=== PATIENT | male | born 2000 | race Asian ===

== ENCOUNTER 2019-05-22 14:29 | Emergency (ER) | payer MEDICAID, OTHER ==
[~2019-05-22] VITALS: Ht 162.6 cm; Wt 63.2 kg
[2019-05-22 14:36] VITALS: BP 121/57
[2019-05-22] MEDS ORDERED: HYDROcodone/acetaminophen 5mg/325mg tablet PO ONE (15:30)
[2019-05-22] MEDS ORDERED: ceFAZolin 1gm IM kit IM ONE (15:30)
[2019-05-22] MEDS ORDERED: ondansetron 4mg rapidly disintigrating tab PO ONE (15:30)
[2019-05-22] MEDS ORDERED: IBUP-1984 PO (15:43)
[2019-05-22] MEDS ORDERED: HYDR-4383 PO (15:43)
== END 2019-05-22 16:29 | disposition home or self-care (01) ==
LOC: ER 14:30
DX: S92.411A Displaced fracture of proximal phalanx of right great toe, initial encounter for closed fracture (principal); S90.121A Contusion of right lesser toe(s) without damage to nail, initial encounter; Z79.899 Other long term (current) drug therapy; W01.0XXA Fall on same level from slipping, tripping and stumbling without subsequent striking against object, initial encounter; Y93.89 Activity, other specified; Y92.89 Other specified places as the place of occurrence of the external cause; Y99.8 Other external cause status
CPT/HCPCS: 73660; 96372; 99283; J0690

== ENCOUNTER 2019-06-07 15:54 | Outpatient (CLI) | payer OTHER ==
[~2019-06-07 15:54] MED LIST: HYDR-4383 PO
== END 2019-06-07 18:09 | disposition home or self-care (01) ==
LOC: ORTHO 15:54
PROVIDERS: ATTEND Orthopaedic Surgery
DX: S92.404D Nondisplaced unspecified fracture of right great toe, subsequent encounter for fracture with routine healing (principal); X58.XXXD Exposure to other specified factors, subsequent encounter
CPT/HCPCS: 73660; G0463

== ENCOUNTER 2019-07-12 09:44 | Outpatient (CLI) | payer OTHER ==
[2019-07-12 09:45] VITALS: BP 128/72
== END 2019-07-12 10:03 | disposition home or self-care (01) ==
LOC: ORTHO 09:44
PROVIDERS: ATTEND Nurse Practitioner
DX: S92.404D Nondisplaced unspecified fracture of right great toe, subsequent encounter for fracture with routine healing (principal); X58.XXXD Exposure to other specified factors, subsequent encounter
CPT/HCPCS: 73660; G0463

== ENCOUNTER 2022-10-29 12:33 | Emergency (ER) | payer OTHER ==
[~2022-10-29] VITALS: Ht 165.1 cm; Wt 62.4 kg
[2022-10-29 12:36] VITALS: BP 112/68
--- NOTE | 2022-10-29 12:59 | NUR ---
Pt in [facility]. Pt cut his L Ring finger while he was outside. Pt educated to POC. Pt in agreement. Pending providers eval and treatment.
[2022-10-29] MEDS ORDERED: TETanus/Pertussis (Acell)/Diphther VAC/PF (Tdap-Adult) 0.5ml syringe IMVAC ONE (13:35)
[2022-10-29] MEDS ORDERED: LIDOcaine 1% 30ml preserv. free vial IJ ONE (13:35)
[2022-10-29] MEDS ORDERED: CEPH250T PO (14:03)
== END 2022-10-29 15:24 | disposition home or self-care (01) ==
LOC: ER 12:34
DX: S61.215A Laceration without foreign body of left ring finger without damage to nail, initial encounter (principal); Z79.899 Other long term (current) drug therapy; X58.XXXA Exposure to other specified factors, initial encounter; Y93.89 Activity, other specified; Y92.89 Other specified places as the place of occurrence of the external cause; Y99.8 Other external cause status
CPT/HCPCS: 12001; 73140; 90471; 90715; 99283; A6223; J3490; J7030; A6449

== ENCOUNTER 2022-11-07 12:11 | Emergency (ER) | payer OTHER ==
[~2022-11-07] VITALS: Ht 165.1 cm; Wt 63.6 kg
[2022-11-07 12:43] VITALS: BP 114/66
== END 2022-11-07 14:46 | disposition home or self-care (01) ==
LOC: ER 12:12
DX: S61.213D Laceration without foreign body of left middle finger without damage to nail, subsequent encounter (principal); X58.XXXD Exposure to other specified factors, subsequent encounter
CPT/HCPCS: 99281